=== PATIENT | female | born 1935 | race Hispanic/Latino ===

== ENCOUNTER 2017-10-02 09:11 | Day surgery (SDC) | payer MEDICARE, MEDICAID ==
[~2017-10-02] VITALS: Ht 157.5 cm; Wt 50.7 kg
[~2017-10-02 09:11] MED LIST: SODIUM CHLORIDE 0.9% 1000ML 1,000 ML IV ONE
[2017-10-02 09:51] VITALS: BP 93/55
[2017-10-02] MEDS ORDERED: LEVO75TA10 PO (10:20)
[2017-10-02] MEDS ORDERED: FISH1CAP27 PO (10:20)
[2017-10-02] MEDS ORDERED: PRAS25CA9 PO (10:20)
[2017-10-02] MEDS ORDERED: PREG150C PO (10:20)
[2017-10-02] MEDS ORDERED: ABAT125A SQ (10:20)
[2017-10-02] MEDS ORDERED: GARL10005 PO (10:20)
[2017-10-02] MEDS ORDERED: PRED3.5D OP (10:20)
[2017-10-02] MEDS ORDERED: CHOL200013 PO (10:20)
[2017-10-02] MEDS ORDERED: PROPOFOL 10 MG/ML 20ML VIAL IV ONE (11:07)
[2017-10-02 11:33] VITALS: BP 89/45
== END 2017-10-02 13:00 ==
LOC: DAH 09:11 → ENDO 09:11
PROVIDERS: ATTEND Internal Medicine Gastroenterology
DX: K57.30 Diverticulosis of large intestine without perforation or abscess without bleeding (principal); K56.2 Volvulus; M19.90 Unspecified osteoarthritis, unspecified site; E05.90 Thyrotoxicosis, unspecified without thyrotoxic crisis or storm; E78.5 Hyperlipidemia, unspecified; Z68.21 Body mass index [BMI] 21.0-21.9, adult; Z79.899 Other long term (current) drug therapy; R63.4 Abnormal weight loss; K52.9 Noninfective gastroenteritis and colitis, unspecified
CPT/HCPCS: 45380; 88305; A4606; J2704; J7030